=== PATIENT | male | born 1930 | race Caucasian/White ===

== ENCOUNTER 2019-01-24 09:48 | Observation (INO) | payer MEDICARE ==
--- NOTE | 2019-01-24 10:31 | ER Document Report ---
ED Medical Screen (RME) - General Chief Complaint: Urinary Problem Stated Complaint: BLEEDING WITH URINATION Time Seen by Provider: 01/24/19 10:15 Notes: Patient is a 88-year-old male with a history of Alzheimer's, dementia, type 2 diabetes who presents to the emergency department with a chief complaint of UTI and altered mental status. Son states he is the primary guardian and that this morning the patient was sitting in the middle of the living room when he should have been in the bed. Son states the patient was soaked in urine. He did take his father to Dr. Davis's office where they did perform a urinalysis and was diagnosed with a UTI. They were sent over to the emergency department for further evaluation and a blood draw. The son states the patient was normal yesterday. He states he did notice a bright red spot in his diaper. Patient normally is incontinent of urine. Son states he appears to be more stiff all over. Son is concerned that he is more confused. Son states he does have a history of a brain bleed in which she did require surgery 2 years ago. Son denies recent fall. Son is concerned that the patient may have something else going on besides a urinary tract infection. Son denies fever, nausea, vomiting or diarrhea. TRAVEL OUTSIDE OF THE [place] IN LAST 30 DAYS: No - Related Data Allergies/Adverse Reactions: No Known Allergies Allergy (Unverified 01/24/19 09:50) Physical Exam - Vital signs Vitals: Pulse Resp BP Pulse Ox 90 16 100/66 98 01/24/19 09:53 01/24/19 09:53 01/24/19 09:53 01/24/19 09:53 - Abdominal Inspection: Normal Distension: No distension, Other Tenderness: Nontender Organomegaly: No organomegaly Course - Re-evaluation Re-evalutation: 01/24/19 10:30 I have greeted and performed a rapid initial assessment of this patient. A comprehensive ED assessment and evaluation of the patient, analysis of test results and completion of the medical decision making process will be conducted by additional ED providers. - Vital Signs Vital signs: Temp Pulse Resp BP Pulse Ox 90 16 100/66 98 01/24/19 09:53 01/24/19 09:53 01/24/19 09:53 01/24/19 09:53
[2019-01-24 10:51] LABS: ABSOLUTE BASOPHILS # (AUTO) 0.1 10^3/uL (0.0-0.2); ABSOLUTE EOSINOPHILS # (AUTO) 0.4 10^3/uL (0.0-0.6); ABSOLUTE LYMPHOCYTES (AUTO) 1.4 10^3/uL (0.5-4.7); ABSOLUTE MONOCYTES (AUTO) 0.9 10^3/uL (0.1-1.4); BASOPHILS % (AUTO) 0.6 % (0-2); EOSINOPHILS % (AUTO) 3.4 % (0-6); HEMATOCRIT 48.6 % (37.9-51.0); HEMOGLOBIN 16.5 g/dL (13.5-17.0); LYMPHOCYTES % (AUTO) 13.1 % (13-45); MEAN CORPUSCULAR HEMOGLOBIN 31.6 pg (27.0-33.4); MEAN CORPUSCULAR VOLUME 93 fl (80-97); MONOCYTES % (AUTO) 8.5 % (3-13); PLATELET COUNT 158 10^3/uL (150-450); RED BLOOD COUNT 5.22 10^6/uL (4.35-5.55); RED CELL DISTRIBUTION WIDTH 13.3 % (11.5-14.0); SEGMENTED NEUTROPHILS % (AUTO) 74.4 % (42-78); TOTAL CELLS COUNTED % (AUTO) 100 %; WHITE BLOOD COUNT 10.8 10^3/uL (4.0-10.5)
--- NOTE | 2019-01-24 11:04 | ER Document Report ---
Doctor's Note Notes: 01/24/19 11:03 Radiologist called with critical findings on patient's head CT, he states there are bilateral subdural hemorrhages, and possible new infarcts. He does not have a recent comparison, last CT on file was from 10 years ago. Patient was upgraded to DIONNE 2, charge nurse made aware.
[2019-01-24 11:07] LABS: ALKALINE PHOSPHATASE 90 U/L (38-126); ANION GAP 8 (5-19); ASPARTATE AMINO TRANSFERASE 20 U/L (17-59); BILIRUBIN,DIRECT 0.3 mg/dL (0.0-0.4); BLOOD UREA NITROGEN 17 mg/dL (7-20); CALCIUM 9.1 mg/dL (8.4-10.2); CARBON DIOXIDE 29 mmol/L (22-30); CHLORIDE 100 mmol/L (98-107); GLUCOSE 189 mg/dL (75-110); POTASSIUM 4.6 mmol/L (3.6-5.0); TOTAL PROTEIN 7.1 g/dL (6.3-8.2)
--- NOTE | 2019-01-24 11:16 | RADIOLOGY REPORT (SQ) ---
EXAM DESCRIPTION: CT HEAD WITHOUT COMPLETED DATE/TIME: 01/24/2019 10:50 am REASON FOR STUDY: altered, hx. brain bleed COMPARISON: 08/09/2006 TECHNIQUE: Axial images acquired through the brain without intravenous contrast. Images reviewed wi th bone, brain and subdural windows. Additional sagittal and coronal reconstructions were generated. Images stored on PACS. All CT scanners at this facility use dose modulation, iterative reconstruction, and/or weight based d osing when appropriate to reduce radiation dose to as low as reasonably achievable (ALARA). [facility]: Dose Right [facility]: CareDose [facility]: Dose Right [facility]: Teradose 4D [facility]: [email or web address] RADIATION DOSE: CT Rad equipment meets quality standard of care and radiation dose reduction techniq ues were employed. CTDIvol: 53.2 mGy. DLP: 1124 mGy-cm.mGy. LIMITATIONS: None. FINDINGS: VENTRICLES: Prominent. CEREBRUM: Evidence of biparietal craniotomies. There is small amount of hyperdense extra-axial colle ction along the right frontal parietal hemisphere measuring up to 5 mm. Additional extra-axial hypod ense collection along the left frontoparietal hemisphere measuring up to 4 mm. There is pneumocephal us along the right parietal craniotomy site. There are areas of hypoattenuation involving the right frontal parietal lobes and left occipital lobes compatible with infarcts, these are new compared to e xam dated 08/09/2006. There additional multifocal areas of periventricular and subcortical hypoattenu ation, likely sequelae of microangiopathic disease. No midline shift or mass effect. Basal cisterns are patent. CEREBELLUM: No masses. No hemorrhage. No alteration of density. No evidence for acute infarction. EXTRAAXIAL SPACES: Bilateral extra-axial collections with pneumocephalus on the right as detailed abo ve. ORBITS AND GLOBE: No intra- or extraconal masses. Normal contour of globe without masses. CALVARIUM: Evidence of bilateral parietal craniotomies. There is cortical disruption of the right cr aniotomy bone flap with irregular areas of lucency throughout. Additional areas of lucency noted wit hin the left craniotomy flap. PARANASAL SINUSES: No fluid or mucosal thickening. SOFT TISSUES: Skin thinning along the right parietal craniotomy site with intracranial communication and associated pneumocephalus. OTHER: No other significant finding. IMPRESSION: 1. Evidence of bilateral parietal craniotomies with small amount of bilateral frontal p arietal mixed density subdural collections, right greater than left, and dural thickening. No signif icant mass effect or midline shift. Pneumocephalus along the right parietal craniotomy site with cor tical destruction of the craniotomy flap and associated skin defect concerning for infection. Recomm end correlation with surgical history and direct visualization. 2. Areas of hypodensity within the right frontoparietal lobes and left occipital lobe compatible wit h infarct, age indeterminate but new since CT dated 08/09/2006. 3. Additional nonspecific white matter changes, likely sequelae of microangiopathic disease. EVIDENCE OF ACUTE STROKE: Age indeterminate infarcts. Subdural hematomas. Pneumocephalus. COMMENT: Pertinent findings on the imaging study reported as a CRITICAL RESULT to NICOLAS REBOLLEDO P at11:03 on 01/24/2019. 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 Pneumocephalus. Subdural hematomas. TECHNICAL DOCUMENTATION: JOB ID: [id number] Quality ID # [id number]: Final reports with documentation of one or more dose reduction techniques (e.g., Au tomated exposure control, adjustment of the mA and/or kV according to patient size, use of iterative reconstruction technique) 2010 [employer]- All Rights Reserved Reading location - IP/workstation name: [email or web address]
--- NOTE | 2019-01-24 11:38 | ER Document Report ---
ED General - General Chief Complaint: Urinary Problem Stated Complaint: BLEEDING WITH URINATION Time Seen by Provider: 01/24/19 10:15 Primary Care Provider: ROSALINO LABOY DO [Primary Care Provider] - Follow up as needed Mode of Arrival: Wheelchair Information source: Relative Notes: This 88-year-old male patient is brought the emergency room by his son for altered mental status. The patient does have Alzheimer's disease, but in the mornings is normally conversant, up and walking with a 4 footed cane. He does go to the [facility] frequently. This morning he was found sitting in the living room when he should have been in bed. He was soaked in urine but is known to be incontinent. His son noted a single bright red blood spot in the diaper, and several reddish-brown spots. He is known to get urinary tract infections. He was taken to an urgent care where they checked his urine and diagnosed urinary tract infection. The son brought him to the emergency room for further evaluation concerned that there was more going on than a urinary tract infection. 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 The son reports that a lesion found on his right scalp over the craniotomy defect, is due to the patient scratching it frequently. TRAVEL OUTSIDE OF THE [place] IN LAST 30 DAYS: No - Related Data Allergies/Adverse Reactions: No Known Allergies Allergy (Unverified 01/24/19 09:50) Past Medical History - General Information source: Relative Cannot obtain history due to: Dementia - Social History Smoking Status: Never Smoker Cigarette use (# per day): No Chew tobacco use (# tins/day): No Smoking Education Provided: No Frequency of alcohol use: None Drug Abuse: None Lives with: Family Family History: Reviewed & Not Pertinent Patient has suicidal ideation: No Patient has homicidal ideation: No - Past Medical History Cardiac Medical History: Reports: Hx Hypercholesterolemia, Other - Low blood pressure requiring Midodrine. Pulmonary Medical History: Reports: None EENT Medical History: Reports: None Neurological Medical History: Reports: Other - Bilateral traumatic subdural hematomas Endocrine Medical History: Reports: Hx Diabetes Mellitus Type 2 Renal/ Medical History: Reports: Hx Benign Prostatic Hyperplasia, Hx Renal Insufficiency GI Medical History: Reports: None Musculoskeletal Medical History: Reports None Psychiatric Medical History: Reports: Hx Dementia Past Surgical History: Reports: Hx Neurologic Surgery - Bilateral craniotomies in 2016 for traumatic subdural hematomas. Review of Systems - Review of Systems -: Yes ROS unobtainable due to patient's medical condition - Review of systems is obtained from the son, as the patient is demented Constitutional: No symptoms reported EENT: No symptoms reported Cardiovascular: No symptoms reported Respiratory: No symptoms reported Gastrointestinal: No symptoms reported Genitourinary: Incontinence Musculoskeletal: No symptoms reported Skin: See HPI - Dry pruritic area on the right craniotomy scar that the patient scratches regularly Hematologic/Lymphatic: No symptoms reported Neurological/Psychological: Dementia Physical Exam - Vital signs Vitals: Pulse Resp BP Pulse Ox 90 16 100/66 98 01/24/19 09:53 01/24/19 09:53 01/24/19 09:53 01/24/19 09:53 - General General appearance: Appears well, Alert In distress: None - HEENT Head: Normocephalic, Other - The right craniotomy scar has a 1 cm ulcerated scabbed over area that has some hair matted in it. There is no obvious communication noted at this time. Eyes: Normal Pupils: PERRL Neck: Normal, Other - There is no pain or discomfort noted on flexing the neck, there is some limitation of movement due to the patient's age and degenerative arthritic condition. - Respiratory Respiratory status: No respiratory distress Breath sounds: Normal - Cardiovascular Rhythm: Regular Heart sounds: Normal auscultation Murmur: No - Abdominal Inspection: Normal Distension: No distension Bowel sounds: Normal Tenderness: Nontender - Back Back: Normal - Extremities General upper extremity: Normal inspection General lower extremity: Normal inspection - Neurological Neuro grossly intact: Yes - Patient does use all extremities, - Psychological Associated symptoms: Other - Patient smiles, demented, not conversant - Skin Skin Temperature: Warm Skin Moisture: Dry Skin Color: Normal Course - Re-evaluation Re-evalutation: 01/24/19 12:16 Discussed with MELISSA Garcia for the on-call neurosurgeon. He states the patient needs medical work-up and no need for urgent surgery. He did review the CT scan films. [facility] is not accepting medical admissions. They recommended I call other facilities. 01/24/19 12:50 I did call to [facility] and was told by the transfer center that they are closed to regional acceptance due to being filled to capacity. - Vital Signs Vital signs: Temp Pulse Resp BP Pulse Ox 97.9 F 90 12 168/87 H 98 01/24/19 11:02 01/24/19 09:53 01/24/19 14:01 01/24/19 14:01 01/24/19 14:01 - Laboratory Result Diagrams: 01/24/19 10:27 01/24/19 10:27 Laboratory results interpreted by me: 01/24/19 01/24/19 01/24/19 10:27 10:27 11:09 WBC 10.8 H Sodium 136.8 L Est GFR (Non-Af Amer) 57 L Glucose 189 H POC Glucose Urine Protein 100 H Urine Glucose (UA) 50 H Urine Ketones TRACE H Urine Blood LARGE H Urine Urobilinogen 4.0 H Ur Leukocyte Esterase MODERATE H 01/24/19 12:25 WBC Sodium Est GFR (Non-Af Amer) Glucose POC Glucose 162 H Urine Protein Urine Glucose (UA) Urine Ketones Urine Blood Urine Urobilinogen Ur Leukocyte Esterase - Diagnostic Test Radiology reviewed: Image reviewed, Reports reviewed - CT scan of the head shows old bilateral parietal craniotomies with small amount of bilateral frontal parietal mixed density subdural collections with right greater than left. There is pneumocephalus along the right parietal craniotomy site with cortical destruction of the craniotomy flap and associated skin defect turning for infection. There does appear to be some air-fluid level. There are areas of hypodensity within the right frontoparietal lobes and left occipital lobe compatible with infarct that are age-indeterminate. - Consults Dr. Bruton Time consulted: 14:10 Consulted provider: will come to ER Discharge - Discharge Clinical Impression: Pneumocephalus Urinary tract infection Qualifiers: Urinary tract infection type: site unspecified Hematuria presence: with hematuria Qualified Code(s): N39.0 - Urinary tract infection, site not specified; R31.9 - Hematuria, unspecified Altered mental status Qualifiers: Altered mental status type: unspecified Qualified Code(s): R41.82 - Altered mental status, unspecified Alzheimer's dementia Qualifiers: Alzheimer's disease onset: late-onset Dementia behavioral disturbance: without behavioral disturbance Qualified Code(s): G30.1 - Alzheimer's disease with late onset; F02.80 - Dementia in other diseases classified elsewhere without behavioral disturbance High blood pressure Qualifiers: Hypertension type: unspecified Qualified Code(s): I10 - Essential (primary) hypertension Diabetes Qualifiers: Diabetes mellitus type: type 2 Diabetes mellitus exterminator helper insulin use: with nursing home use Diabetes mellitus complication status: without complication Qualified Code(s): E11.9 - Type 2 diabetes mellitus without complications; Z79.4 - termite control service representative (current) use of insulin Condition: Stable Disposition: ADMITTED INPATIENT Admitting Provider: Josephine (Hospitalist) Unit Admitted: IMCU Referrals: ROSALINO LABOY DO [Primary Care Provider] - Follow up as needed
[2019-01-24 12:01] LABS: APPEARANCE,URINE CLOUDY; BILIRUBIN,URINE NEGATIVE (NEGATIVE); COLOR,URINE DARK YELLOW; GLUCOSE, URINE 50 mg/dL (NEGATIVE); KETONES,URINE TRACE mg/dL (NEGATIVE); LEUKOCYTE ESTERASE,URINE MODERATE (NEGATIVE); NITRITE,URINE NEGATIVE (NEGATIVE); PROTEIN,URINE 100 mg/dL (NEGATIVE); URINE SPECIFIC GRAVITY 1.023
[2019-01-24] MEDS ORDERED: ERTAPENEM SODIUM INJ 1 GM VIAL IV ONE (12:19)
--- NOTE | 2019-01-24 14:38 | EKG REPORT ---
SEVERITY:- OTHERWISE NORMAL ECG - SINUS RHYTHM BORDERLINE LEFT AXIS DEVIATION : Confirmed by: Arlette Hays 24-Jan-2019 14:37:45
[2019-01-24] MEDS ORDERED: DEXTROSE 40% GEL 15 GM TUBE PO PRN ×2 (15:05)
[2019-01-24] MEDS ORDERED: DEXTROSE 50%-WATER 25 GM/50 ML DISP.SYRIN IV PRN ×2 (15:05)
[2019-01-24] MEDS ORDERED: GLUCAGON,HUMAN RECOMB 1 MG INJ IM PRN (15:05)
[2019-01-24] MEDS ORDERED: HYDRALAZINE HCL INJ/PF 20 MG/1 ML SDV IV PRN (15:06)
--- NOTE | 2019-01-24 16:11 | RADIOLOGY REPORT (SQ) ---
EXAM DESCRIPTION: CT ABD/PELVIS NO ORAL OR IV COMPLETED DATE/TIME: 01/24/2019 3:42 pm REASON FOR STUDY: hematuria COMPARISON: None. TECHNIQUE: CT scan of the abdomen and pelvis performed without intravenous or oral contrast. Images reviewed with lung, soft tissue, and bone windows. Reconstructed coronal and sagittal MPR images revi ewed. All images stored on PACS. All CT scanners at this facility use dose modulation, iterative reconstruction, and/or weight based d osing when appropriate to reduce radiation dose to as low as reasonably achievable (ALARA). [facility]: Dose Right [facility]: CareDose [facility]: Dose Right [facility]: Teradose 4D [facility]: Smart [employer] RADIATION DOSE: CT Rad equipment meets quality standard of care and radiation dose reduction techniq ues were employed. CTDIvol: 7.7 mGy. DLP: 474 mGy-cm.mGy. LIMITATIONS: None. FINDINGS: LOWER CHEST: Scattered coronary atherosclerosis. NON-CONTRASTED LIVER, SPLEEN, ADRENALS: Evaluation limited by lack of IV contrast. No identified sign ificant masses. PANCREAS: No masses. No peripancreatic inflammatory changes. GALLBLADDER: No identified stones by CT criteria. No inflammatory changes to suggest cholecystitis. RIGHT KIDNEY AND URETER: No suspicious masses. Assessment limited by lack of IV contrast. Punctate nonobstructing stone in the lower pole. No hydronephrosis or hydroureter. LEFT KIDNEY AND URETER: No suspicious masses. Assessment limited by lack of IV contrast. No signifi cant calcifications. No hydronephrosis or hydroureter. AORTA AND RETROPERITONEUM: Aortoiliac atherosclerosis without aneurysm. No adenopathy or mass. BOWEL AND PERITONEAL CAVITY: No obvious masses or inflammatory changes. No free fluid. APPENDIX: Normal. PELVIS, BLADDER, AND ABDOMINAL WALL:Unremarkable bladder. Prostatomegaly with scattered prostate landon cifications. Fat containing left inguinal hernia. BONES: No acute bony abnormality. No suspicious osseous lesions. Lower lumbar spondylosis. OTHER: No other significant finding. IMPRESSION: 1. Punctate nonobstructing right renal stone. No evidence of hydronephrosis or obstruc tive uropathy. 2. Chronic findings as above without other evidence of acute intra-abdominal/pelvic process. COMMENT: Quality ID # [id number]: Final reports with documentation of one or more dose reduction techniques (e.g., Automated exposure control, adjustment of the mA and/or kV according to patient size, use of iterative reconstruction technique) TECHNICAL DOCUMENTATION: JOB ID: [id number] [employer]- All Rights Reserved Reading location - IP/workstation name: [email or web address]
--- NOTE | 2019-01-24 16:50 | RADIOLOGY REPORT (SQ) ---
EXAM DESCRIPTION: MRI HEAD COMBO COMPLETED DATE/TIME: 01/24/2019 4:14 pm REASON FOR STUDY: further reassess CT findings COMPARISON: 01/24/2018 TECHNIQUE: Multiplanar imaging includes noncontrasted T1, T2, FLAIR, Diffusion with ADC map and post gadolinium contrast T1 sequences. Images stored on PACS. CONTRAST TYPE AND DOSE: 10 mL [employer] RENAL FUNCTION: Not indicated. ACR Type II contrast agent associated with few, if any, unconfounded cases of NSF LIMITATIONS: None. FINDINGS: ANATOMY: No anomalies. Normal vascular flow voids. Pituitary fossa normal. CSF SPACES: Atrophy-induced prominence of CSF spaces and ventricles. CEREBRUM: High-signal intensity lesions scattered throughout the white matter on FLAIR imaging with d istribution suggesting chronic micro-vascular ischemic change. Surgical changes right parietal. No significant enhancement. No mass effect. No enhancing fluid collection. Small fluid collection at the surgical site containing air. No mass effect. Most likely related to surgery. POSTERIOR FOSSA: No signal alteration. No hemorrhage. No edema, masses, or mass effect. Internal samantha tory canals, cerebello-pontine angles, mastoids normal. No enhancing lesions. ORBITS: No masses. Globes normal. PARANASAL SINUSES: No fluid levels. Mucosa normal. DIFFUSION: Normal. No evidence of recent infarct. OTHER: No other significant finding. IMPRESSION: No acute infarct. No enhancing lesion or enhancing fluid collection to suggest an absce ss. Surgical changes in the right parietal lobe as described on CT. Marked atrophy and microvascular ischemia. EVIDENCE OF ACUTE STROKE: NO. TECHNICAL DOCUMENTATION: JOB ID: [id number] [employer]- All Rights Reserved Reading location - IP/workstation name: [email or web address]
[2019-01-24] MEDS: INSULIN LISPRO 100 UNIT/ML 3 ML VIAL SUBCUT SCH ×2 (18:24→22:00)
--- NOTE | 2019-01-24 18:24 | ADVANCED CARE ---
- Diagnosis (1) Acute encephalopathy Diagnosis Current: Yes (2) Alzheimer's dementia Diagnosis Current: Yes (3) IDDM (insulin dependent diabetes mellitus) Diagnosis Current: Yes (4) Pneumocephalus Diagnosis Current: Yes (5) Urinary tract infection Diagnosis Current: Yes Resuscitation Status: Do Not Resuscitate Discussion: Discussed with patient's son and Jalen MATTHEWS/Amilcar Noland He says patient does not have a specific advanced directive on paper however he says that he would prefer the patient NOT to get chest compressions, defibrillation or mechanical ventilation if the need arises given his advanced dementia.
--- NOTE | 2019-01-24 18:24 | PDOC H&P ---
History of Present Illness Admission Date/PCP: 01/24/19 14:41 ROSALINO LABOY DO Patient complains of: confusion History of Present Illness: WILLAM VALIENTE is a 88 year old male with a past medical history of Alzheimer's dementia, 2 prior craniotomies for subdural hemorrhage secondary to trauma/fall, hypotension on midodrine at home and insulin-dependent diabetes mellitus who was brought in due to being more confused than the usual. Patient's son says that patient has waxing and waning episodes of confusion at home from his dementia. He says that this morning, patient appeared to be more confused than usual and had an episode where he was unable to recognize the son. He noticed that patient had hematuria and a diet per. No melena or hematochezia. No fever or chills at home. Patient was brought into his PCPs office this morning and was found to have a urinary tract infection andwas sent to the ER. In the ER, CT of the head was which showed chronic changes from prior craniotomies and subdural hematomas. Also noted was a pneumocephalus and inf arcts of indeterminate age. ER provider, Dr. Venegas, discussed the case and reviewed CT images with the neurosurgery group at [facility] and per ER provider they do not recommend any intervention at this time and that this could be followed up with them as outpatient. Upon encounter, patient appears comfortable. He is able to tell me his name and he was able to recognize and get his son's name right. He denies any pain. He does have a chronic scab on the right parietal area. No active drainage or erythema around the area as noted. Son does say that he has been chronically scratching that part of his skull since after his craniotomies. Past Medical History Cardiac Medical History: Reports: Hyperlipidema, Other - Low blood pressure requiring Midodrine. Pulmonary Medical History: Reports: None EENT Medical History: Reports: None Neurological Medical History: Reports: Other - Bilateral traumatic subdural hematomas Endocrine Medical History: Reports: Diabetes Mellitus Type 2 GI Medical History: Reports: None Musculoskeltal Medical History: Reports: None Psychiatric Medical History: Reports: Dementia Social History Lives with: Family Smoking Status: Never Smoker Family History Family History: Reviewed & Not Pertinent Parental Family History Reviewed: Yes - No premature CAD Children Family History Reviewed: No Sibling(s) Family History Reviewed.: No Medication/Allergy Allergies/Adverse Reactions: No Known Allergies Allergy (Unverified 01/24/19 09:50) Review of Systems All systems: reviewed and no additional remarkable complaints except as stated - As mentioned in HPI Physical Exam Vital Signs: Temp Pulse Resp BP Pulse Ox 97.9 F 90 12 168/87 H 98 01/24/19 11:02 01/24/19 09:53 01/24/19 14:01 01/24/19 14:01 01/24/19 14:01 Intake & Output 01/23/19 01/24/19 01/25/19 06:59 06:59 06:59 Weight 153 lb General appearance: PRESENT: no acute distress, well-developed, well-nourished Head exam: PRESENT: atraumatic, normocephalic Eye exam: PRESENT: conjunctiva pink, EOMI, PERRLA. ABSENT: scleral icterus Ear exam: PRESENT: normal external ear exam Mouth exam: PRESENT: moist, tongue midline Neck exam: ABSENT: carotid bruit, JVD, lymphadenopathy, thyromegaly Respiratory exam: PRESENT: clear to auscultation siddhartha. ABSENT: rales, rhonchi, wheezes Cardiovascular exam: PRESENT: RRR. ABSENT: diastolic murmur, rubs, systolic murmur Pulses: PRESENT: normal dorsalis pedis pul GI/Abdominal exam: PRESENT: normal bowel sounds, soft. ABSENT: distended, guarding, mass, organolmegaly, rebound, tenderness Rectal exam: PRESENT: deferred Extremities exam: PRESENT: full ROM. ABSENT: calf tenderness, clubbing, pedal edema Neurological exam: PRESENT: alert, awake, oriented to person, CN II-XII grossly intact. ABSENT: motor sensory deficit Skin exam: PRESENT: other - He does have a chronic scab on the right parietal area. No active drainage or erythema around the area as noted. Results Laboratory Results: 01/24/19 10:27 01/24/19 10:27 01/24/19 01/24/19 01/24/19 10:27 10:27 11:09 WBC 10.8 H RBC 5.22 Hgb 16.5 Hct 48.6 MCV 93 MCH 31.6 MCHC 34.0 RDW 13.3 Plt Count 158 Seg Neutrophils % 74.4 Lymphocytes % 13.1 Monocytes % 8.5 Eosinophils % 3.4 Basophils % 0.6 Absolute Neutrophils 8.0 Absolute Lymphocytes 1.4 Absolute Monocytes 0.9 Absolute Eosinophils 0.4 Absolute Basophils 0.1 Sodium 136.8 L Potassium 4.6 Chloride 100 Carbon Dioxide 29 Anion Gap 8 BUN 17 Creatinine 1.21 Est GFR ( Amer) > 60 Est GFR (Non-Af Amer) 57 L Glucose 189 H Calcium 9.1 Total Bilirubin 1.0 AST 20 Alkaline Phosphatase 90 Total Protein 7.1 Albumin 4.0 Urine Color DARK YELLOW Urine Appearance CLOUDY Urine pH 5.0 Ur Specific [place] 1.023 Urine Protein 100 H Urine Glucose (UA) 50 H Urine Ketones TRACE H Urine Blood LARGE H Urine Nitrite NEGATIVE Ur Leukocyte Esterase MODERATE H Urine WBC (Auto) >182 Urine RBC (Auto) >182 Impressions: Head CT 01/24/19 10:26 IMPRESSION: 1. Evidence of bilateral parietal craniotomies with small amount of bilateral frontal parietal mixed density subdural collections, right greater than left, and dural thickening. No significant mass effect or midline shift. Pneumocephalus along the right parietal craniotomy site with cortical destruction of the craniotomy flap and associated skin defect concerning for infection. Recommend correlation with surgical history and direct visuali zation. 2. Areas of hypodensity within the right frontoparietal lobes and left occipital lobe compatible with infarct, age indeterminate but new since CT dated 08/09/2006. 3. Additional nonspecific white matter changes, likely sequelae of microangiopathic disease. EVIDENCE OF ACUTE STROKE: Age indeterminate infarcts. Subdural hematomas. Pneumocephalus. Assessment and Plan - Diagnosis (1) Acute encephalopathy Is this a current diagnosis for this admission?: Yes Plan: Patient appears to be on his baseline mentation per son upon encounter. Likely related to UTI and the patient advanced dementia. (2) Urinary tract infection Qualifiers: Urinary tract infection type: site unspecified Hematuria presence: with hematuria Qualified Code(s): N39.0 - Urinary tract infection, site not sp ecified; R31.9 - Hematuria, unspecified Is this a current diagnosis for this admission?: Yes Plan: Patient was given ertapenem in the ER. Will have patient Rocephin. Urine culture pending. (3) IDDM (insulin dependent diabetes mellitus) Is this a current diagnosis for this admission?: Yes Plan: Per son, patient takes Levemir 14 units at bedtime. (4) Alzheimer's dementia Qualifiers: Alzheimer's disease onset: late-onset Dementia behavioral disturbance: without behavioral disturbance Qualified Code(s): G30.1 - Alzheimer's disease with late onset; F02.80 - Dementia in other diseases classified elsewhere without behavioral disturbance Is this a current diagnosis for this admission?: Yes Plan: Supportive management. (5) High blood pressure Qualifiers: Hypertension type: unspecified Qualified Code(s): I10 - Essential (primary) hypertension Is this a current diagnosis for this admission?: Yes Plan: Patient slightly hypertensive in the 160 systolic. Son says that he chronically has low blood pressure and hence has been placed on midodrine. Hold off on midodrine for now. (6) Pneumocephalus Is this a current diagnosis for this admission?: Yes Plan: CT results mentioned above. CT findings discussed by ER provider with neurosurgery at [facility]. Will puruse MRI to further assess findings on CT scan. - Time Time Spent with patient: 25-34 minutes
[2019-01-24] MEDS ORDERED: HEPARIN SOD (PORCINE) 5,000 UNIT/ML 1 ML VIAL SUBCUT SCH (22:00)
[2019-01-25] MEDS: INSULIN LISPRO 100 UNIT/ML 3 ML VIAL SUBCUT SCH ×4 (08:11→21:31)
[2019-01-25] MEDS: CEFTRIAXONE SODIUM 1,000 MG in DEXTROSE 5%-WATER 50 ML IV SCH (09:21)
[2019-01-25] MEDS ORDERED: CEFTRIAXONE 1 GM/D5W RTU 1 GM/50 ML RTUPB IV SCH (10:00)
--- NOTE | 2019-01-25 10:51 | PDOC PROGRESS REPORT ---
Subjective Progress Note for:: 01/25/19 Subjective:: This is 88 years old male patient with past medical history of Alzheimer dementia, hyperlipidemia, diabetes mellitus, chronic hypotension for patient on midodrine, and history of traumatic subdural bilateral hematoma status post craniotomy brought by family members with chief complaint of confusion. At his baseline patient has waxing and waning confusions. This morning I seen patient resting in bed comfortably. He is awake alert and is oriented to self and plac e. His vital signs are stable and his blood work shows hemoglobin A1c of 9.7. Reason For Visit: ACUTE ENCEPHALOPATHY, PNEUMOCEPHALUS Physical Exam Vital Signs: Temp Pulse Resp BP Pulse Ox 98.0 F 61 18 175/70 H 98 01/25/19 07:43 01/25/19 07:43 01/25/19 07:43 01/25/19 07:43 01/25/19 07:43 Intake & Output 01/24/19 01/25/19 01/26/19 06:59 06:59 06:59 Intake Total 270 Output Total 225 Balance 45 Weight 71 kg General appearance: PRESENT: no acute distress Head exam: PRESENT: atraumatic Eye exam: PRESENT: conjunctiva pink Mouth exam: PRESENT: moist, tongue midline Neck exam: ABSENT: carotid bruit, JVD, lymphadenopathy, thyromegaly Respiratory exam: PRESENT: clear to auscultation siddhartha. ABSENT: rales, rhonchi, wheezes Cardiovascular exam: PRESENT: RRR. ABSENT: diastolic murmur, rubs, systolic murmur Neurological exam: PRESENT: alert, awake, oriented to place Results Laboratory Results: 01/24/19 10:27 01/24/19 10:27 01/24/19 01/24/19 01/24/19 10:27 10:27 11:09 WBC 10.8 H RBC 5.22 Hgb 16.5 Hct 48.6 MCV 93 MCH 31.6 MCHC 34.0 RDW 13.3 Plt Count 158 Seg Neutrophils % 74.4 Lymphocytes % 13.1 Monocytes % 8.5 Eosinophils % 3.4 Basophils % 0.6 Absolute Neutrophils 8.0 Absolute Lymphocytes 1.4 Absolute Monocytes 0.9 Absolute Eosinophils 0.4 Absolute Basophils 0.1 Sodium 136.8 L Potassium 4.6 Chloride 100 Carbon Dioxide 29 Anion Gap 8 BUN 17 Creatinine 1.21 Est GFR ( Amer) > 60 Est GFR (Non-Af Amer) 57 L Glucose 189 H Calcium 9.1 Total Bilirubin 1.0 AST 20 Alkaline Phosphatase 90 Total Protein 7.1 Albumin 4.0 Urine Color DARK YELLOW Urine Appearance CLOUDY Urine pH 5.0 Ur Specific [place] 1.023 Urine Protein 100 H Urine Glucose (UA) 50 H Urine Ketones TRACE H Urine Blood LARGE H Urine Nitrite NEGATIVE Ur Leukocyte Esterase MODERATE H Urine WBC (Auto) >182 Urine RBC (Auto) >182 Impressions: Head CT 01/24/19 10:26 IMPRESSION: 1. Evidence of bilateral parietal craniotomies with small amount of bilateral frontal parietal mixed density subdural collections, right greater than left, and dural thickening. No significant mass effect or midline shift. Pneumocephalus along the right parietal craniotomy site with cortical destruction of the craniotomy flap and associated skin defect concerning for in fection. Recommend correlation with surgical history and direct visualization. 2. Areas of hypodensity within the right frontoparietal lobes and left occipital lobe compatible with infarct, age indeterminate but new since CT dated 08/09/2006. 3. Additional nonspecific white matter changes, likely sequelae of microangiopathic disease. EVIDENCE OF ACUTE STROKE: Age indeterminate infarcts. Subdural hematomas. Pneumocephalus. Head MRI 01/24/19 15:00 IMPRESSION: No acute infarct. No enhancing lesion or enhancing fluid collection to suggest an abscess. Surgical changes in the right parietal lobe as described on CT. Marked atrophy and microvascular ischemia. EVIDENCE OF ACUTE STROKE: NO. Abdomen/Pelvis CT 01/24/19 15:08 IMPRESSION: 1. Punctate nonobstructing right renal stone. No evidence of hydronephrosis or obstructive uropathy. 2. Chronic findings as above without other evidence of acute intra- abdominal/pelvic process. Assessment and Plan - Diagnosis (1) Acute encephalopathy Is this a current diagnosis for this admission?: Yes Plan: May be worsening of his underlying Alzheimer dementia. Currently patient seems at his baseline. (2) Chronic hypotension Is this a current diagnosis for this admission?: Yes Plan: Continue midodrine (3) IDDM (insulin dependent diabetes mellitus) Is this a current diagnosis for this admission?: Yes Plan: His hemoglobin A1c is 9.7. I do not think it is advisable to strictly control his diabetes because of his multiple comorbidities and limited life expectancy. (4) Hx of traumatic subdural hematoma Is this a current diagnosis for this admission?: Yes Plan: Status post craniotomy and removal of hematoma. His CT scan and MRI shows small subdural fluid collection and pneumocephalus. ER attending contacted neurosurgeons at [facility] and they recommended no intervention.
[2019-01-26 03:35] VITALS: BP 154/74
[2019-01-26] MEDS: INSULIN LISPRO 100 UNIT/ML 3 ML VIAL SUBCUT SCH ×2 (08:13→11:53)
[2019-01-26] MEDS: CEFTRIAXONE SODIUM 1,000 MG in DEXTROSE 5%-WATER 50 ML IV SCH (09:15)
--- NOTE | 2019-01-26 10:56 | PDOC DISCHARGE SUMMARY ---
General - Admit/Disc Date/PCP Admission Date/Primary Care Provider: 01/24/19 14:41 ROSALINO LABOY, Discharge Date: 01/26/19 - Discharge Diagnosis (1) Acute encephalopathy Is this a current diagnosis for this admission?: Yes (2) Chronic hypotension Is this a current diagnosis for this admission?: Yes (3) IDDM (insulin dependent diabetes mellitus) Is this a current diagnosis for this admission?: Yes (4) Hx of traumatic subdural hematoma Is this a current diagnosis for this admission?: Yes - Additional Information Resuscitation Status: Do Not Resuscitate Home Medications: Donepezil HCl [Aricept 5 mg Tablet] 5 mg PO DAILY 01/25/19 Tamsulosin HCl [Flomax] 0.4 mg PO DAILY 01/25/19 History of Present Illness History of Present Illness: WILLAM VALIENTE is a 88 year old male with a past medical history of Alzheimer's dementia, 2 prior craniotomies for subdural hemorrhage secondary to trauma/fall, hypotension on midodrine at home and insulin-dependent diabetes mellitus who was brought in due to being more confused than the usual. Patient's son says that patient has waxing and waning episodes of confusion at home from his dementia. He says that this morning, patient appeared to be more confused than usual and had an episode where he was unable to recognize the son. He noticed that patient had hematuria and a diet per. No melena or hematochezia. No fever or chills at home. Patient was brought into his PCPs office this morning and was found to have a urinary tract infection andwas sent to the ER. In the ER, CT of the head was which showed chronic changes from prior craniotomies and subdural hematomas. Also noted was a pneumocephalus and infarcts of indeterminate age. ER provider, Dr. Venegas, discussed the case and reviewed CT images with the neurosurgery group at [facility] and per ER provider they do not recommend any intervention at this time and that this could be followed up with them as outpatient. Upon encounter, patient appears comfortable. He is able to tell me his name and he was able to recognize and get his son's name right. He denies any pain. He does have a chronic scab on the right parietal area. No active drainage or erythema around the area as noted. Son does say that he has been chronically scratching that part of his skull since after his craniotomies. Hospital Course Hospital Course: This is 88 years old male patient with past medical history of Alzheimer dementia, hyperlipidemia, diabetes mellitus, chronic hypotension for patient on midodrine, and history of traumatic subdural bilateral hematoma status post craniotomy brought by family members with chief complaint of confusion. At his baseline patient has waxing and waning confusions. This morning I seen patient resting in bed comfortably. He is awake alert and is oriented to self and place. His vital signs are stable and his blood work shows hemoglobin A1c of 9.7. 01/26/2019: Patient seen and examined while resting in bed comfortably he is not in pain or distress he is awake alert. His mental status is at his baseline. No adverse event overnight. His vital signs are within normal limits. Patient stable enough to be discharged today. Physical Exam Vital Signs: Temp Pulse Resp BP Pulse Ox 97.4 F 59 L 16 154/74 H 96 01/26/19 03:32 01/26/19 06:54 01/26/19 03:32 01/26/19 03:32 01/26/19 03:32 Intake & Output 01/25/19 01/26/19 01/27/19 06:59 06:59 06:59 Intake Total 270 360 50 Output Total 225 250 Balance 45 110 50 Weight 71 kg 70.5 kg General appearance: PRESENT: no acute distress Head exam: PRESENT: atraumatic Neck exam: ABSENT: carotid bruit, JVD, lymphadenopathy, thyromegaly Respiratory exam: PRESENT: clear to auscultation siddhartha. ABSENT: rales, rhonchi, wheezes GI/Abdominal exam: PRESENT: normal bowel sounds, soft. ABSENT: distended, guarding, mass, organolmegaly, rebound, tenderness Neurological exam: PRESENT: alert, awake, oriented to person, oriented to place Results Laboratory Results: 01/24/19 10:27 01/24/19 10:27 Impressions: Head CT 01/24/19 10:26 IMPRESSION: 1. Evidence of bilateral parietal craniotomies with small amount of bilateral frontal parietal mixed density subdural collections, right greater than left, and dural thickening. No significant mass effect or midline shift. Pneumocephalus along the right parietal craniotomy site with cortical destruction of the craniotomy flap and associated skin defect concerning for infection. Recommend correlation with surgical history and direct visualization. 2. Areas of hypodensity within the right frontoparietal lobes and left occipital lobe compatible with infarct, age indeterminate but new since CT dated 08/09/2006. 3. Additional nonspecific white matter changes, likely sequelae of microangiopathic disease. EVIDENCE OF ACUTE STROKE: Age indeterminate infarcts. Subdural hematomas. Pneumocephalus. Head MRI 01/24/19 15:00 IMPRESSION: No acute infarct. No enhancing lesion or enhancing fluid collection to suggest an abscess. Surgical changes in the right parietal lobe as described on CT. Marked atrophy and microvascular ischemia. EVIDENCE OF ACUTE STROKE: NO. Abdomen/Pelvis CT 01/24/19 15:08 IMPRESSION: 1. Punctate nonobstructing right renal stone. No evidence of hydronephrosis or obstructive uropathy. 2. Chronic findings as above without other evidence of acute intra- abdominal/pelvic process. Qualifiers - * PATIENT BEING DISCHARGED WITH ANY OF THE FOLLOWING DIAGNOSIS: No Acute Heart Failure - Is this a Heart Failure Patient?: No LVEF < 40%?: No- if no continue to question #3 3. Anticoagulant therapy for permanect/persistent/paraoxysmal Afib or Aflutter: N/A Follow-up Appointment scheduled within 7 days?: Yes
--- NOTE | 2019-01-26 11:03 | PDOC PROGRESS REPORT ---
Subjective Progress Note for:: 01/26/19 Subjective:: This is 88 years old male patient with past medical history of Alzheimer dementia, hyperlipidemia, diabetes mellitus, chronic hypotension for patient on midodrine, and history of traumatic subdural bilateral hematoma status post craniotomy brought by family members with chief complaint of confusion. At his baseline patient has waxing and waning confusions. This morning I seen patient resting in bed comfortably. He is awake alert and is oriented to self and plac e. His vital signs are stable and his blood work shows hemoglobin A1c of 9.7. 01/26/2019: No adverse event overnight. Patient sleeping but arousable with verbal stimuli. Family states that they are not able to take care of him and they want him to be placed in retirement facility. Reason For Visit: ACUTE ENCEPHALOPATHY, PNEUMOCEPHALUS Physical Exam Vital Signs: Temp Pulse Resp BP Pulse Ox 97.4 F 59 L 16 154/74 H 96 01/26/19 03:32 01/26/19 06:54 01/26/19 03:32 01/26/19 03:32 01/26/19 03:32 Intake & Output 01/25/19 01/26/19 01/27/19 06:59 06:59 06:59 Intake Total 270 360 50 Output Total 225 250 Balance 45 110 50 Weight 71 kg 70.5 kg General appearance: PRESENT: no acute distress Head exam: PRESENT: atraumatic Respiratory exam: PRESENT: clear to auscultation siddhartha. ABSENT: rales, rhonchi, wheezes Cardiovascular exam: PRESENT: RRR. ABSENT: diastolic murmur, rubs, systolic murmur Results Laboratory Results: 01/24/19 10:27 01/24/19 10:27 Impressions: Head CT 01/24/19 10:26 IMPRESSION: 1. Evidence of bilateral parietal craniotomies with small amount of bilateral frontal parietal mixed density subdural collections, right greater than left, and dural thickening. No significant mass effect or midline shift. Pneumocephalus along the right parietal craniotomy site with cortical destruction of the craniotomy flap and associated skin defect concerning for infection. Recommend correlation with surgical history and direct visualization. 2. Areas of hypodensity within the right frontoparietal lobes and left occipital lobe compatible with infarct, age indeterminate but new since CT dated 08/09/2006. 3. Additional nonspecific white matter changes, likely sequelae of microang iopathic disease. EVIDENCE OF ACUTE STROKE: Age indeterminate infarcts. Subdural hematomas. Pneumocephalus. Head MRI 01/24/19 15:00 IMPRESSION: No acute infarct. No enhancing lesion or enhancing fluid collection to suggest an abscess. Surgical changes in the right parietal lobe as described on CT. Marked atrophy and microvascular ischemia. EVIDENCE OF ACUTE STROKE: NO. Abdomen/Pelvis CT 01/24/19 15:08 IMPRESSION: 1. Punctate nonobstructing right renal stone. No evidence of hydronephrosis or obstructive uropathy. 2. Chronic findings as above without other evidence of acute intra- abdominal/pelvic process. Assessment and Plan - Diagnosis (1) Acute encephalopathy Is this a current diagnosis for this admission?: Yes Plan: Currently his mental status is at his baseline (2) Chronic hypotension Is this a current diagnosis for this admission?: Yes Plan: Continue midodrine (3) IDDM (insulin dependent diabetes mellitus) Is this a current diagnosis for this admission?: Yes Plan: His hemoglobin A1c is 9.7. I do not think it is advisable to strictly control his diabetes because of his multiple comorbidities and limited life expectancy. (4) Hx of traumatic subdural hematoma Is this a current diagnosis for this admission?: Yes Plan: Status post craniotomy and removal of hematoma. His CT scan and MRI shows small subdural fluid collection and pneumocephalus. ER attending contacted neurosurgeons at [facility] and they recommended no intervention.
== END 2019-01-26 15:55 | disposition home health service (06) ==
LOC: ER 09:48 → EH 14:41 → INTOOBSV 14:41 → 3N 17:28
PROVIDERS: ADMIT Internal Medicine; ATTEND Internal Medicine
DX: G93.40 Encephalopathy, unspecified (principal); I95.89 Other hypotension; E11.9 Type 2 diabetes mellitus without complications; G30.1 Alzheimer's disease with late onset; F02.80 Dementia in other diseases classified elsewhere, unspecified severity, without behavioral disturbance, psychotic disturbance, mood disturbance, and anxiety; N39.0 Urinary tract infection, site not specified; R31.9 Hematuria, unspecified; R23.4 Changes in skin texture; G93.89 Other specified disorders of brain; I95.9 Hypotension, unspecified; E78.5 Hyperlipidemia, unspecified; L29.8 Other pruritus; L98.499 Non-pressure chronic ulcer of skin of other sites with unspecified severity; N40.1 Benign prostatic hyperplasia with lower urinary tract symptoms; N39.498 Other specified urinary incontinence; Z79.4 Long term (current) use of insulin; Z66 Do not resuscitate; Z87.820 Personal history of traumatic brain injury; Z79.899 Other long term (current) drug therapy; Z98.890 Other specified postprocedural states; Z91.81 History of falling; Z87.440 Personal history of urinary (tract) infections
CPT/HCPCS: 99285; 96365; 36415; 87040; 87086; 82962 ×3; 85025; 87088; 80053; 81001; 83036; 70553; 70450; 74176; 93005; 93010; 97116; 97163; G0378 ×4; A9576; J0360; A9270 ×3; J1335; J0696 ×2; J7060 ×2; J1815